=== PATIENT | male | born 1945 | race Caucasian/White ===

== ENCOUNTER 2021-12-24 16:51 | Outpatient (REF) | payer MEDICARE, BC, SELFPAY ==
[2021-12-24 19:14] LABS: Appearance Urine Slightly Cloudy (Clear); Bilirubin Urine Negative (Negative); Blood Urine 1+ (Negative); Color Urine Yellow (Yellow); Glucose Urine Negative (Negative); Ketones Urine Negative (Negative); Leukocyte Esterase Urine 3+ (Negative); Nitrite Urine Negative (Negative); Protein Urine Negative (Negative); Urobilinogen Urine 0.2 (0.2-1.0)
[2021-12-24 19:51] LABS: RBC Urine >100 (0-2); WBC Urine >100 (0-5)
== END 2021-12-24 16:52 | disposition home or self-care (01) ==
LOC: NPINS 16:51
PROVIDERS: PCP Nurse Practitioner Gerontology; Visit Provider Nurse Practitioner Gerontology
DX: R82.998 Other abnormal findings in urine (principal)
CPT/HCPCS: 81001; 87086

== ENCOUNTER 2022-10-07 07:43 | Outpatient (REF) | payer MEDICARE, BC, SELFPAY ==
[2022-10-07 08:27] LABS: Hemoglobin* 13.4 gm/dL (13.5-17.5); Mean Corpuscular HGB Conc 33 gm/dL (32-36); Mean Corpuscular Hemoglobin 31 pg (26-34); Mean Corpuscular Volume 95 fL (80-100); Platelet Count* 162 K/uL (140-440); Red Blood Count 4.33 m/uL (4.30-5.90); White Blood Count* 5.83 K/uL (4.50-11.00)
[2022-10-07 08:33] LABS: Slide Review Reflex No
[2022-10-07 08:35] LABS: Chloride* 111 mmol/L (96-114); Potassium* 3.7 mmol/L (3.6-5.1); Sodium* 146 mmol/L (135-149)
[2022-10-07 08:38] LABS: Creatinine* 1.6 mg/dL (0.5-1.5); Estimated Glomerular Filt Rate 44 ml/min
[2022-10-07 08:39] LABS: Blood Urea Nitrogen* 17 mg/dL (7-30); Calcium* 9.6 mg/dL (8.4-10.6); Carbon Dioxide* 28 mmol/L (20-32); Glucose* 109 mg/dL (60-115)
== END 2022-10-07 07:44 | disposition home or self-care (01) ==
LOC: NPINS 07:43
PROVIDERS: PCP Nurse Practitioner Gerontology; Visit Provider Family Medicine
DX: R53.83 Other fatigue (principal)
CPT/HCPCS: 80048; 85027

== ENCOUNTER 2023-02-11 17:44 | Inpatient (IN) | payer MEDICARE, BC, SELFPAY ==
[2023-02-11] VITALS (18 sets, daily range): BP systolic 116–123; BP diastolic 80–107; PULSE 79–95; RESP 14; TEMP 37.1–37.5; O2SAT 91–97; BMI 25.8
--- NOTE | 2023-02-11 17:50 | ED.FEVER ---
HPI - Fever General Time Seen by Provider: 18:03 Date Seen: 02/11/23 Chief Complaint: Altered Mental Status Stated Complaint: fever Time Seen by Provider: 02/11/23 17:50 Source: patient and RN notes reviewed Mode of arrival: ambulatory Limitations: no limitations History of Present Illness HPI Narrative: Patient is a 77-year-old male brought in by ambulance from [facility] with fever and altered mental status. Patient is in the memory care unit there, usually is ambulatory but was noted to not be walking today, had a fever. His has not seen him much recently as there has been a COVID outbreak over there. She states Thursday no but he tested positive. On Thursday she actually did see him, did note him to be coughing some. She relays that the last time he was hospitalized here, really had no symptoms but weakness but was found to have pneumonia on chest CT, chest x-ray did not show anything. She notes that his nutritional status in intake has been diminishing over the summer, thought to be due to his end-stage dementia. He is DNR DNI, she would want him treated if he had a UTI, would certainly consider antibiotics. Selective medical treatments are considered for him. Current medications are acetaminophen suppository p.r.n. artificial tears p.r.n. aspirin 81 mg daily, biscodyl suppository p.r.n., Desitin b.i.d., fluorouracil cream b.i.d., hyoscyamine p.r.n. p.r.n. lorazepam, MiraLax daily, oxycodone 5 mg q.2 hours p.r.n., prochlorperazine 10 mg p.r.n. propranolol 60 mg extended release q.a.m., senna p.r.n. at this time, do not know what his temperature was at [facility]. I initially talked to his , do not see any report in the outside paperwork. Will see if we can ascertain what his temperature was there. Have reviewed with his thoughts on labs. She certainly would be okay for us to do an in and out catheter to get a urinary specimen. She would also agree to some blood work. Did review things like a CBC can be beneficial in helping me figure out what type of infection there might be. We will also do the triple swab which includes COVID. Will have them do blood cultures. His problem list shows Alzheimer's dementia, dental caries, skin cancer, constipation, ASCVD with out angina, hypertension, hyperlipidemia, history of major depressive disorder, macular degeneration, amnesia, essential tremor. MD elicited complaint: fever Related Data Home Medications Medication Instructions Recorded Confirmed aspirin 81 mg tablet,delayed 81 mg PO QDAY 01/29/22 02/11/23 release propranolol 60 mg capsule,24 60 mg PO QDAY 01/29/22 02/11/23 hr,extended release sennosides 8.6 mg capsule (senna) 8.6 mg PO BID 01/29/22 02/11/23 Previous Rx's Medication Instructions Recorded fluorouracil 5 % topical cream 1 applic topical BID #40 grams 12/02/22 Allergies Allergy/AdvReac Type Severity Reaction Status Date / Time atorvastatin Allergy Unknown Verified 02/11/23 18:05 Review of Systems Status of ROS Reports: unobtainable due to mental status Narrative Patient does attempt to talk to me but is mumbling, cannot understand him. [facility] Medical History (Updated 02/11/23 @ 22:36 by Violeta Mckeon MD) Actinic keratoses ?L57.0 - Actinic keratosis (ICD-10) Social History Smoking Status: Never smoker How often do you have a drink containing alcohol: never How often do you have six or more drinks on one occasion: Never AUDIT-C Alcohol total score: 0 Non-prescribed substance use: denies use Exam Const Vital Signs, click to edit/add: Vital Signs - 24 hr 02/11/23 17:57 02/11/23 18:01 02/11/23 19:44 Temperature 98.8 F Pulse Rate 90 Pulse Rate [Pulse Oximeter] 95 Respiratory Rate 14 Blood Pressure Blood Pressure [Right Upper Arm] 123/107 H Pulse Oximetry 96 92 95 Oxygen Delivery Method Room Air 02/11/23 19:45 02/11/23 20:00 02/11/23 20:02 Temperature Pulse Rate 89 90 91 Pulse Rate [Pulse Oximeter] Respiratory Rate Blood Pressure 117/80 Blood Pressure [Right Upper Arm] Pulse Oximetry 94 95 94 Oxygen Delivery Method 02/11/23 20:15 02/11/23 20:30 Temperature Pulse Rate 91 90 Pulse Rate [Pulse Oximeter] Respiratory Rate Blood Pressure Blood Pressure [Right Upper Arm] Pulse Oximetry 94 94 Oxygen Delivery Method Patient is a 77-year-old male lying in bed. He was sleeping initially, did stimulate with sternal rub but after that was attempting to try to talk to me. He palpates warmer than what the temperature red, will have nursing staff see if we can do an alternate temperature source. Will not open his eyes but when I force is upper eyelids open, sclera clear, seems to have a conjugate gaze. Breathing with his mouth open, oropharynx looks dry but no exudates. Neck is slender no masses. He fights having us attempt to roll him so I can listen to his back, the best that I can do listening to his lungs, do not hear any wheezing or crackles, this is a poor exam due to lack of patient effort right now. CV regular rate and rhythm, no murmur, normal S1-S2. Abdomen seems to be soft, no masses, does not seem to be tender. Did have him move his upper extremities and localized pain as a did a mild sternal rub. He later did move his legs up and bring them up into a flexed position at the knees. He has no lower extremity edema, see no skin rash or any open wounds on visualized areas. Documenting provider has reviewed patient's vital signs: yes Course Course ED Course: Patient very obviously likely has an infectious source as the causes of his change in status. Will start with a portable chest x-ray, some basic labs the triple viral swab. Will be doing an in and out catheterization to obtain urine specimen. Will discuss options and treatments with his as we go. Unfortunately, do not feel that he is going to be a candidate to go back to his memory care unit given his current status. He technically is a hospice patient from what I understand may need to discuss this further and confirmed that with his , this was brought to my attention after I talked to her. Reevaluation(s) Time of Reevaluation #1: 21:03 Reevaluation #1: Went to talk to patient's , I did learn from nursing staff that the hospice team had sent in a prescription for cefdinir, was to be started tomorrow for probable UTI. He is definitely hospice. We discussed hospice and what hospice technically means. She states the hospice nurse told her he could come to the ER. We discussed that admission to the hospital is not part of the hospice program, if this is what she is desiring then his hospice status would need to be revoked. She was hoping for him to get IV fluids and IV antibiotics. She did not relate this information to me when we were talking. He will get some IV fluid now, will initiate IV Rocephin, she needs to consider what she wants done. She states he probably would be able to take an oral pill right now, did review with her that I agreed but he may not be able to take them tomorrow either. Time will tell. She has some decisions to consider and we will give her some time to think about these things. Time of Reevaluation #2: 22:27 Reevaluation #2: He has received the IV fluids, the IV Rocephin. He is not really communicative with me still at this point. His recollects that when he could speak for himself, he did want to be treated for infections that could be reversible. This is with the understanding that he is currently in hospice. She understands that will be revoked but he can go back in the hospice at some point. We will honor her wishes, put him in the hospital observation. I will initiate some maintenance IV fluid. He is still DNR DNI. Consultations Consultation #1: Have reviewed with Dr. Ruby, he accepts this patient. Time: 22:35 Vital Signs Vital signs: Initial Vital Signs Temperature 98.8 F 02/11/23 17:57 Temperature Source Temporal Artery Scan 02/11/23 17:57 Pulse Rate 95 02/11/23 17:57 Respiratory Rate 14 02/11/23 17:57 Blood Pressure 123/107 H 02/11/23 17:57 Blood Pressure Mean 112 H 02/11/23 17:57 Blood Pressure Position Sitting 02/11/23 17:57 Pulse Oximetry 96 02/11/23 17:57 Oxygen Delivery Method Room Air 02/11/23 17:57 Vital Signs Temperature 98.8 F 02/11/23 17:57 Pulse Rate 95 02/11/23 17:57 Respiratory Rate 14 02/11/23 17:57 Blood Pressure 123/107 H 02/11/23 17:57 Pulse Oximetry 96 02/11/23 17:57 Oxygen Delivery Method Room Air 02/11/23 17:57 Temperature 98.8 F 02/11/23 17:57 Pulse Rate 90 02/11/23 20:30 Respiratory Rate 14 02/11/23 17:57 Blood Pressure 117/80 02/11/23 20:02 Pulse Oximetry 94 02/11/23 20:30 Oxygen Delivery Method Room Air 02/11/23 17:57 MDM - Fever Lab Data Attestation: I reviewed the patient's lab results. Labs: Lab Results 02/11/23 02/11/23 02/11/23 Range/Units 18:10 18:13 18:45 WBC 21.84 H (4.50-11.00) K/uL RBC 4.44 (4.30-5.90) m/uL Hgb 14.0 (13.5-17.5) gm/dL Hct 42.5 (37.0-53.0) % MCV 96 (80-100) fL MCH 32 (26-34) pg MCHC 33 (32-36) gm/dL RDW Coeff of Dionisio 13.2 (11.5-15.5) % Plt Count 187 (140-440) K/uL Neut % (Auto) 71.8 (42.0-72.0) % Lymph % (Auto) 7.2 L (20-44) % Tyrrell % (Auto) 20.4 H (0.0-11.0) % Eos % (Auto) 0.0 (0.0-7.0) % Baso % (Auto) 0.2 (0.0-3.0) % Neut # (Auto) 15.70 H (1.7-7.0) K/uL Lymph # (Auto) 1.60 (0.90-2.90) K/uL Tyrrell # (Auto) 4.50 H (0.00-0.90) K/UL Eos # (Auto) 0.00 (0.00-0.50) K/uL Baso # (Auto) 0.00 (0.00-0.30) K/uL Abs Immat Gran (auto) 0.10 (0.00-0.30) K/uL Imm/Tot Granulo (auto) 0.4 % Diff Slide Review Acceptable Review (Acceptable) Sodium 145 (135-149) mmol/L Potassium 4.0 (3.6-5.1) mmol/L Chloride 112 (96-114) mmol/L Carbon Dioxide 20 (20-32) mmol/L Anion Gap 13 (7-15) mEq/L BUN 29 (7-30) mg/dL Creatinine 2.5 H (0.5-1.5) mg/dL Estimated Creat Clear 22.40 Estimated GFR 26 ml/min Glucose 162 H (60-115) mg/dL Lactate 1.6 (0.5-1.9) mmol/L Calcium 9.6 (8.4-10.6) mg/dL Total Bilirubin 1.2 (0.1-1.5) mg/dL AST 29 (12-35) U/L ALT 21 (4-50) U/L Alkaline Phosphatase 115 (40-150) U/L C-Reactive Protein > 9.0 H (0.5-1.0) mg/dL Total Protein 9.3 H (6.0-8.3) g/dL Albumin 4.3 (3.3-5.0) g/dL Urine Color (Yellow) Urine Appearance (Clear) Urine pH (5.0-8.5) Ur Specific [place] (1.000-1.030) Urine Protein (Negative) Urine Glucose (UA) (Negative) Urine Ketones (Negative) Urine Blood (Negative) Urine Nitrite (Negative) Urine Bilirubin (Negative) Urine Urobilinogen (0.2-1.0) Ur Leukocyte Esterase (Negative) Urine RBC (0-2) Urine WBC (0-5) Urine WBC Clumps (None) Ur Squamous Epith Cells (None-Few) Urine Bacteria (None) SARS-CoV-2 (PCR) Negative SARS-CoV-2 (Negative) Influenza Type A (PCR) Negative PCR FLU A (Negative) Influenza Type B (PCR) Negative PCR FLU B (Negative) RSV (PCR) Negative PCR RSV (Negative) Lab Acknowledgement Test Added 02/11/23 Range/Units 19:33 WBC (4.50-11.00) K/uL RBC (4.30-5.90) m/uL Hgb (13.5-17.5) gm/dL Hct (37.0-53.0) % MCV (80-100) fL MCH (26-34) pg MCHC (32-36) gm/dL RDW Coeff of Dionisio (11.5-15.5) % Plt Count (140-440) K/uL Neut % (Auto) (42.0-72.0) % Lymph % (Auto) (20-44) % Tyrrell % (Auto) (0.0-11.0) % Eos % (Auto) (0.0-7.0) % Baso % (Auto) (0.0-3.0) % Neut # (Auto) (1.7-7.0) K/uL Lymph # (Auto) (0.90-2.90) K/uL [place] # (Auto) (0.00-0.90) K/UL Eos # (Auto) (0.00-0.50) K/uL Baso # (Auto) (0.00-0.30) K/uL Abs Immat Gran (auto) (0.00-0.30) K/uL Imm/Tot Granulo (auto) % Diff Slide Review (Acceptable) Sodium (135-149) mmol/L Potassium (3.6-5.1) mmol/L Chloride (96-114) mmol/L Carbon Dioxide (20-32) mmol/L Anion Gap (7-15) mEq/L BUN (7-30) mg/dL Creatinine (0.5-1.5) mg/dL Estimated Creat Clear Estimated GFR ml/min Glucose (60-115) mg/dL Lactate (0.5-1.9) mmol/L Calcium (8.4-10.6) mg/dL Total Bilirubin (0.1-1.5) mg/dL AST (12-35) U/L ALT (4-50) U/L Alkaline Phosphatase (40-150) U/L C-Reactive Protein (0.5-1.0) mg/dL Total Protein (6.0-8.3) g/dL Albumin (3.3-5.0) g/dL Urine Color Yellow (Yellow) Urine Appearance Slightly Cloudy A (Clear) Urine pH 8.0 (5.0-8.5) Ur Specific [place] 1.015 (1.000-1.030) Urine Protein 2+ A (Negative) Urine Glucose (UA) Negative (Negative) Urine Ketones Negative (Negative) Urine Blood 2+ A (Negative) Urine Nitrite Negative (Negative) Urine Bilirubin Negative (Negative) Urine Urobilinogen 0.2 (0.2-1.0) Ur Leukocyte Esterase 3+ A (Negative) Urine RBC 5-10 A (0-2) Urine WBC >100 A (0-5) Urine WBC Clumps Few A (None) Ur Squamous Epith Cells None (None-Few) Urine Bacteria Moderate A (None) SARS-CoV-2 (PCR) (Negative) Influenza Type A (PCR) (Negative) Influenza Type B (PCR) (Negative) RSV (PCR) (Negative) Lab Acknowledgement Imaging Data Chest x-ray: Attestation: I have reviewed the pertinent imaging results. My impression: I see no acute pathology my preliminary review of this portable chest x-ray. Radiologist's impression: Patient: [facility] Facility:?[facility] Patient ID:?[id number] Site Patient ID:?[id number]. Site :?[id number] Study:?XRay Chest PORTABLE-02/11/2023 6:23:15 PM Ordering Physician:Heydi Mcdaniel Final Report: INDICATION: Cough and fever. COMPARISON: Two-view chest December 08, 2020. TECHNIQUE: Single portable AP chest. FINDINGS: Normal size cardiac silhouette. Clear lung alfaro. No acute pneumonic infiltrates or CHF. IMPRESSION: Negative portable AP chest. Dictated by Per Moe MD @ 02/11/2023 6:44:47 PM (Electronic Signature) Discharge Plan Discharge Clinical Impression: Altered mental status, Dementia, Urinary tract infection Patient Disposition: Admitted As Observation Prescriptions: No Action senna 8.6 mg capsule 8.6 mg PO BID aspirin 81 mg tablet,delayed release (DR/EC) 81 mg PO QDAY propranolol 60 mg capsule,extended release 24 hr 60 mg PO QDAY fluorouracil 5 % cream 1 applic topical BID Qty: 40 0RF Follow Up/Referrals: Daria Dia DNP, RN [Primary Care Provider] -
--- NOTE | 2023-02-11 18:01 | CRLHL7_ITS ---
For Patients: As a result of the Century Cures Act, medical imaging exams and procedure reports are released immediately into your electronic medical record. You may view this report before your referring provider. If you have questions, please contact your health care provider. INDICATION: Cough and fever. COMPARISON: Two-view chest December 08, 2020. TECHNIQUE: Single portable AP chest. FINDINGS: Normal size cardiac silhouette. Clear lung alfaro. No acute pneumonic infiltrates or CHF. IMPRESSION: Negative portable AP chest. Dictated by Per Moe MD @ 02/11/2023 6:44:47 PM (Electronically Signed)
[2023-02-11 18:50] LABS: PCR FLU A Negative PCR FLU A (Negative); PCR FLU B Negative PCR FLU B (Negative); PCR RSV Negative PCR RSV (Negative); SARS PCR* Negative SARS-CoV-2 (Negative)
[2023-02-11 18:54] LABS: Lactate* 1.6 mmol/L (0.5-1.9)
[2023-02-11 19:08] LABS: Albumin* 4.3 g/dL (3.3-5.0); Chloride* 112 mmol/L (96-114)
[2023-02-11 19:09] LABS: Sodium* 145 mmol/L (135-149)
[2023-02-11 19:11] LABS: Bilirubin Total* 1.2 mg/dL (0.1-1.5); Creatinine* 2.5 mg/dL (0.5-1.5); Estimated Glomerular Filt Rate 26 ml/min
[2023-02-11 19:12] LABS: Alanine Aminotransferase* 21 U/L (4-50); Alkaline Phosphatase* 115 U/L (40-150); Anion Gap 13 mEq/L (7-15); Aspartate Amino Transferase* 29 U/L (12-35); Blood Urea Nitrogen* 29 mg/dL (7-30); Calcium* 9.6 mg/dL (8.4-10.6); Carbon Dioxide* 20 mmol/L (20-32); Glucose* 162 mg/dL (60-115); Total Protein* 9.3 g/dL (6.0-8.3)
[2023-02-11 19:24] LABS: C Reactive Protein* > 9.0 mg/dL (0.5-1.0)
--- NOTE | 2023-02-11 19:40 | ED.NURSE ---
Straight cath done, pt did not tolerate procedure well. 3 staff members required to assist in keeping pt still to complete procedure. UA collected and sent to lab. Approx 200 mLs of cloudy yellow urine drained from cath. Pt cleaned with landry wipes and clean brief applied after cath.
[2023-02-11 19:49] LABS: Basophils Percent Auto 0.2 % (0.0-3.0); Hematocrit 42.5 % (37.0-53.0); Immature Granulocytes Pct Auto 0.4 %; Lymphocytes Percent Auto 7.2 % (20-44); Mean Corpuscular HGB Conc 33 gm/dL (32-36); Mean Corpuscular Hemoglobin 32 pg (26-34); Mean Corpuscular Volume 96 fL (80-100); Monocytes Percent Auto 20.4 % (0.0-11.0); Neutrophils Percent Auto 71.8 % (42.0-72.0); Platelet Count* 187 K/uL (140-440); RDW Coefficient of Variation % 13.2 % (11.5-15.5); Red Blood Count 4.44 m/uL (4.30-5.90); White Blood Count* 21.84 K/uL (4.50-11.00)
[2023-02-11 19:52] LABS: Slide Review Reflex Yes
[2023-02-11 20:01] LABS: Appearance Urine Slightly Cloudy (Clear); Bilirubin Urine Negative (Negative); Blood Urine 2+ (Negative); Color Urine Yellow (Yellow); Glucose Urine Negative (Negative); Ketones Urine Negative (Negative); Specific Gravity Urine 1.015 (1.000-1.030)
[2023-02-11 20:02] LABS: Bacteria Urine Moderate; Leukocyte Esterase Urine 3+ (Negative); Nitrite Urine Negative (Negative); Protein Urine 2+ (Negative); Urobilinogen Urine 0.2 (0.2-1.0); WBC Clumps Urine Few; WBC Urine >100 (0-5)
[2023-02-11 20:43] LABS: Slide Review Acceptable Review (Acceptable)
[2023-02-11] MEDS: 0.9 % SODIUM CHLORIDE 500 ML 500 ML IV (21:06)
[2023-02-11] MEDS: cefTRIAXone 1 GM in 0.9 % SODIUM CHLORIDE Mini-bag 100 ML IVPB (21:15)
[2023-02-11] MEDS: LACTATED RINGERS 1000 ML 1,000 ML IV (22:45)
--- NOTE | 2023-02-11 23:02 | ED.NURSE ---
Report called to M/S RN.
--- NOTE | 2023-02-11 23:38 | P.IMHP_ITS ---
Hospitalist- H&P: HPI History of Present Illness Date Seen: 02/11/23 Chief complaint: fever Narrative: Juan Mendoza is a 77 year old male with severe dementia in hospice care and history of coronary disease who has had decline in mental status, functional status in the last few days. Today he developed fever. He lives at [facility] at [facility]. He is enrolled in hospice for dementia. Dementia was diagnosed 11 years ago. When he became ill the hospice staff ordered an oral antibiotic. With his declining mental status it was clear that he was not going to be able to swallow any pills or taken any food or fluid. He is brought to the emergency room for evaluation. I spoke with his and his sister about his goals of care. indicates that she does not want him to suffer and that she is also not wanting to let go of him. She is concerned that the staff at [facility] and the hospice staff are not going to be able to provide comfort care. She also wants him to get antibiotics because 8 years ago he indicated he would want infections treated on his advanced directives. She thinks his quality of life is poor and does not think that he would want his life to be prolonged for more months. Review of Systems Narrative: With his dementia he is nonverbal except for occasional nonsensical utterances. He does ambulate. He has frequent falls. If his or staff put a walker in front of him he will use it but otherwise does not always remember to use a walker. His appetite and nutrition is variable. Some days she does not eat much but usually will drink something. In the last couple days he has apparently not been eating or drinking. He sometimes does not cooperate with cares. His was concerned that staff could not give him a Tylenol suppository because he would resist them. Family history is notable for his having 14 siblings who are mostly still alive and in fairly good health. Couple sisters had breast cancer in a brother had complications of diabetes [facility] Medical History Hypertension ?I10 - Essential (primary) hypertension (ICD-10) Essential tremor ?G25.0 - Essential tremor (ICD-10) Coronary artery disease ?I25.10 - Atherosclerotic heart disease of zuni coronary artery without angina pectoris (ICD-10) Palliative care encounter ?Z51.5 - Encounter for palliative care (ICD-10) Heshn-nr-qkmtpxh kidney injury ?N17.9 - Acute kidney failure, unspecified (ICD-10) ?N18.9 - Chronic kidney disease, unspecified (ICD-10) Hyperproteinemia ?E88.09 - Other disorders of plasma-protein metabolism, not elsewhere classified (ICD-10) Dementia ?F03.90 - Unspecified dementia, unspecified severity, without behavioral disturbance, psychotic disturbance, mood disturbance, and anxiety (ICD-10) Squamous cell carcinoma in situ (SCCIS) ?D09.9 - Carcinoma in situ, unspecified (ICD-10) Skin lesion of left arm ?L98.9 - Disorder of the skin and subcutaneous tissue, unspecified (ICD-10) Actinic keratoses ?L57.0 - Actinic keratosis (ICD-10) Surgical History History of coronary artery stent placement ?Z95.5 - Presence of coronary angioplasty implant and graft (ICD-10) H/O hernia repair ?Z98.890 - Other specified postprocedural states (ICD-10) ?Z87.19 - Personal history of other diseases of the digestive system (ICD-10) Family History (Updated 02/11/23 @ 23:53 by Denilson Ruby MD) Sister Breast cancer Other Diabetes Social History (Updated 02/11/23 @ 23:55 by Denilson Ruby MD) Narrative: He lives at [facility]. His is closely involved in his care and visits regularly. She has been visiting lasts in the last couple weeks as they have had an outbreak of COVID at [facility]. She is healthcare power of proof plate maker. Smoking Status: Never smoker How often do you have a drink containing alcohol: never How often do you have six or more drinks on one occasion: Never AUDIT-C Alcohol total score: 0 Non-prescribed substance use: denies use Meds Home Medications and Allergies Home Medications Medication Instructions Recorded Confirmed Type aspirin 81 mg tablet,delayed 81 mg PO QDAY 01/29/22 02/11/23 History release propranolol 60 mg capsule,24 60 mg PO QDAY 01/29/22 02/11/23 History hr,extended release sennosides 8.6 mg capsule (senna) 8.6 mg PO BID 01/29/22 02/11/23 History Allergies Allergy/AdvReac Type Severity Reaction Status Date / Time atorvastatin Allergy Unknown Verified 02/11/23 18:05 Exam Narrative: Exam Narrative: He is sleeping soundly. Does not arouse to voice or touch. He does have some spontaneous nonpurposeful movements in his sleep. He does respond to to my touching his hand by squeezing my hand with both hands. He resists eye opening but eyes grossly appear normal without scleral icterus. No obvious facial asymmetry. Dry mucous membranes. Neck is without mass or adenopathy. Respirations are clear to auscultation. Breathing is unlabored. Cardiovascular: S1, S2, distant heart sounds. Abdomen is soft with mild right- sided tenderness. Bowel sounds are present. I do not palpate a mass. External genitalia normal. Extremities without edema. Intact peripheral pulses. He moves all 4 extremities non purposefully but with approximately equal strength Const: Vital Signs, click to edit/add: Vital Signs - 24 hr 02/11/23 17:57 02/11/23 18:01 02/11/23 19:44 Temperature 98.8 F Pulse Rate 90 Pulse Rate [Pulse Oximeter] 95 Respiratory Rate 14 Blood Pressure Blood Pressure [Ri ght Upper Arm] 123/107 H Pulse Oximetry 96 92 95 Oxygen Delivery Me thod Room Air 02/11/23 19:45 02/11/23 20:00 02/11/23 20:02 Temperature Pulse Rate 89 90 91 Pulse Rate [Pulse Oximeter] Respiratory Rate Blood Pressure 117/80 Blood Pressure [Ri ght Upper Arm] Pulse Oximetry 94 95 94 Oxygen Delivery Me thod 02/11/23 20:15 02/11/23 20:30 02/11/23 20:45 Temperature Pulse Rate 91 90 91 Pulse Rate [Pulse Oximeter] Respiratory Rate Blood Pressure Blood Pressure [Ri ght Upper Arm] Pulse Oximetry 94 94 92 Oxygen Delivery Me thod 02/11/23 21:00 02/11/23 21:15 02/11/23 21:30 Temperature Pulse Rate 93 89 85 Pulse Rate [Pulse Oximeter] Respiratory Rate Blood Pressure Blood Pressure [Ri ght Upper Arm] Pulse Oximetry 93 94 91 Oxygen Delivery Me thod 02/11/23 21:45 02/11/23 22:00 02/11/23 22:02 Temperature Pulse Rate 81 81 80 Pulse Rate [Pulse Oximeter] Respiratory Rate Blood Pressure 116/94 H Blood Pressure [Ri ght Upper Arm] Pulse Oximetry 95 93 97 Oxygen Delivery Me thod 02/11/23 22:15 02/11/23 22:30 02/11/23 22:45 Temperature 99.5 F Pulse Rate 84 82 Pulse Rate [Pulse Oximeter] Respiratory Rate Blood Pressure Blood Pressure [Ri ght Upper Arm] Pulse Oximetry 93 96 Oxygen Delivery Me thod 02/11/23 22:45 Temperature Pulse Rate 79 Pulse Rate [Pulse Oximeter] Respiratory Rate Blood Pressure Blood Pressure [Ri ght Upper Arm] Pulse Oximetry 95 Oxygen Delivery Me thod Documenting provider has reviewed patient's vital signs: yes Hospitalist - H&P: Result Labs Labs: Short CBC 02/11/23 Range/Units 18:45 WBC 21.84 H (4.50-11.00) K/uL Hgb 14.0 (13.5-17.5) gm/dL Hct 42.5 (37.0-53.0) % Plt Count 187 (140-440) K/uL BMP 02/11/23 18:45 Sodium 145 Potassium 4.0 Chloride 112 Carbon Dioxide 20 BUN 29 Creatinine 2.5 H Glucose 162 H Calcium 9.6 Liver Function 02/11/23 Range/Units 18:45 Total Bilirubin 1.2 (0.1-1.5) mg/dL AST 29 (12-35) U/L ALT 21 (4-50) U/L Alkaline Phosphatase 115 (40-150) U/L Albumin 4.3 (3.3-5.0) g/dL Urine 02/11/23 Range/Units 19:33 Urine Color Yellow (Yellow) Urine Appearance Slightly Cloudy A (Clear) Urine pH 8.0 (5.0-8.5) Ur Specific [place] 1.015 (1.000-1.030) Urine Protein 2+ A (Negative) Urine Glucose (UA) Negative (Negative) Assessment and Plan Assessment and plan (1) Sepsis: Problem comment: Fever, leukocytosis, acute kidney injury, altered mental status likely due to urinary infection. Other abdominal problems also possible. Currently will not further investigate as does not think surgical intervention is warranted and uncertain about goals of care. Status: Acute (2) Urinary tract infection: Status: Acute (3) Qxzso-zb-wyinvdx kidney injury: Status: Acute (4) Abdominal tenderness: Problem comment: Patient had tenderness with palpation over the right side of his abdomen. Due to altered mental status the significance of this was difficult to assess. His decided that he was not a candidate for surgical intervention. For now will forego further testing pending his clinical course and further discussions with about goals of care Status: Acute (5) Palliative care encounter: Problem comment: Patient has been in hospice with a diagnosis of dementia since November 2022. She verbalized concerns tonight about her fears that he was suffering and also that he was dying. She was fearful that the staff at assisted living and in hospice could not relieve his suffering. She feels his quality of life is poor and he does not want life-prolonging treatment but she does not want to let go. Status: Acute (6) Dementia: Problem comment: Severe. Hospice diagnosis. Status: Acute (7) Altered mental status: Problem comment: Acute worsening of his mental status in the last few days. Previously walking independently and feeding himself. Recently not eating and not walking and less responsive overall. Likely due to infection and sepsis Status: Acute (8) Hyperproteinemia: Problem comment: Unknown cause. Uncertain whether investigation would benefit the patient Status: Acute (9) Coronary artery disease: Status: Acute (10) Hypertension: Status: Acute Plan After long discussion with patient's about his condition and goals of care decisions made that he will be hospitalized, treated with IV antibiotics and IV fluids. Ongoing discussion about goals of care and end of life care. needs more confidence that staff providing care going to be able to keep him comfortable. She is also clearly emotionally torn about the possibility of him dying yet recognizes that he would probably not want life-prolonging treatment. Total time spent today is 80 minutes, 50 minutes in coordination of care discussing with ongoing evaluation management of end of life care and urinary tract infection with sepsis
[2023-02-12] VITALS: BP 114/71; PULSE 75; RESP 20; TEMP 37.1; O2SAT 98
[2023-02-12] MEDS: LACTATED RINGERS 1000 ML 1,000 ML 125 ML IV ×2 (01:28→08:50)
[2023-02-12 03:50] VITALS: BP 115/62; PULSE 76; RESP 18; TEMP 37.5; O2SAT 95
[2023-02-12 06:30] LABS: Lactate* 1.2 mmol/L (0.5-1.9)
[2023-02-12 06:40] LABS: Basophils Percent Auto 0.1 % (0.0-3.0); Hematocrit 36.8 % (37.0-53.0); Hemoglobin* 11.9 gm/dL (13.5-17.5); Immature Granulocytes Pct Auto 0.4 %; Lymphocytes Percent Auto 6.7 % (20-44); Mean Corpuscular HGB Conc 32 gm/dL (32-36); Mean Corpuscular Hemoglobin 31 pg (26-34); Mean Corpuscular Volume 96 fL (80-100); Neutrophils Percent Auto 72.8 % (42.0-72.0); Platelet Count* 165 K/uL (140-440); RDW Coefficient of Variation % 13.2 % (11.5-15.5); Red Blood Count 3.82 m/uL (4.30-5.90); White Blood Count* 18.81 K/uL (4.50-11.00)
[2023-02-12 06:41] LABS: Slide Review Reflex Yes
[2023-02-12 06:59] LABS: Albumin* 3.5 g/dL (3.3-5.0); Chloride* 117 mmol/L (96-114)
[2023-02-12 07:00] LABS: Sodium* 148 mmol/L (135-149)
[2023-02-12 07:02] LABS: Creatinine* 2.1 mg/dL (0.5-1.5); Est. Creatinine Clearance* 26.67; Estimated Glomerular Filt Rate 31 ml/min
[2023-02-12 07:03] LABS: Alanine Aminotransferase* 16 U/L (4-50); Alkaline Phosphatase* 84 U/L (40-150); Anion Gap 10 mEq/L (7-15); Aspartate Amino Transferase* 28 U/L (12-35); Bilirubin Direct* 0.2 mg/dL (0.0-0.5); Bilirubin Total* 0.9 mg/dL (0.1-1.5); Blood Urea Nitrogen* 29 mg/dL (7-30); Carbon Dioxide* 21 mmol/L (20-32); Glucose* 143 mg/dL (60-115); Total Protein* 7.9 g/dL (6.0-8.3)
[2023-02-12 07:04] LABS: Calcium* 8.8 mg/dL (8.4-10.6)
--- NOTE | 2023-02-12 07:17 | PC.NURSE ---
END OF SHIFT NOTE: PT WITH ADVANCED DEMENTIA. PT SPEECH IS GARBLED, UNABLE TO UNDERSTAND. INCONTINENT OF URINE X2. SWABBED MOUTH WITH ORAL SPONGES. LR @125ML/HR. SLEPT WELL. UNABLE TO USE CALL LIGHT AND VOICE NEEDS. T&R DURING HS.
[2023-02-12 07:22] LABS: C Reactive Protein* 22.3 mg/dL (0.5-1.0)
[2023-02-12 07:44] LABS: Slide Review Acceptable Review (Acceptable)
[2023-02-12 07:49] VITALS: BP 118/98; PULSE 75; RESP 16; TEMP 36.9; O2SAT 96
[2023-02-12] MEDS: ASPIRIN 81 MG TABLET EC PO (08:48)
[2023-02-12] MEDS: SENNOSIDES 1 TAB TABLET 8.6 TAB PO (08:50)
--- NOTE | 2023-02-12 09:45 | REH.PT ---
Attempted to see patient this morning for assessment of mobility. Pt able to be awakened briefly with sternal rub, then returns to eyes shut. Pt's and sister present, very concerned about patient and whether or not he will awaken, or if this is, 'the beginning of the end.' If patient opens eyes, can consider ceiling lift to recliner with nsg staff later today. reports that 4 days ago prior to fever, pt was up amb Ind or with sba of 1 with 2ww in memory care at [facility]. In conversation with Dr. Ruby, he would like to wait and hear from soc. service as to whether pt can be taken care of at [facility] with comfort cares if he is placed on hospice again. Will recheck with and nsg staff tomorrow as to whether patient should be seen by PT for assessment.
[2023-02-12] MEDS: fentaNYL 12 mcg/hr PATCH 1 PATCH TRANSDERMA (11:44)
--- NOTE | 2023-02-12 11:44 | REH.OT ---
Orders for OT eval and treat received. Per PT and nsg, pt difficult to be awakened with intermittent alertness this AM. Not appropriate to see at this time, will recheck tomorrow.
--- NOTE | 2023-02-12 12:56 | PC.SOCIAL ---
Addendum entered by Shilpa Villar LCSW 02/12/23 15:25: , Dori updated on plan to discharge tomorrow 02/13 with non emergency ambulance at 11:00am. Charge nurse and hospitalist updated. Social work to follow up as needed. Addendum entered by Shilpa Villar LCSW 02/12/23 14:26: Spoke with Guerline from [facility]. They are willing to accept patient back tomorrow around 11:00am. Social work to follow up as needed. Original Note: Discharge Planning: Met in patient's room with , Dori and patient's sister, Daria. Discussed patient and families journey with hospice.Spouse, Dori was very tearful as she talked about her husbands terminal diagnosis, agitation, and choices to be made. Dori stated that Juan had filled out an advanced directive eight years ago stating that he would want antibiotics and she felt that she was honoring his wishes by bringing him into the hospital, even though he was on hospice. Hospitalist, Dr. Ruby entered the room and explained the choices that Dori could make for her . After consideration Dori decided to make her as comfortable as possible with medications, so that he no longer felt agitated. Support given as family comes to terms decisions and with prognosis. Patient will stay one more day at the hospital. Spouse is hopeful that patient can return to [facility] with hospice services. Call to Guerline at [facility] [phone]. Awaiting call back. Social work to follow up as needed.
--- NOTE | 2023-02-12 13:14 | NUTR.NU ---
RDN with nursing consult for weight loss, eating poorly, and needing a nutrition supplement. Patient comes from memory care at [facility] with hospice. Plan is to possibly discharge back on hospice per IDT meeting. RDN met with patient's and sister. Patient was receiving and drinking Boost and Ensure at [facility]. Patient's declined any nutrition supplements or nutrition interventions at this time. Patient is reported to not be awake enough to eat at this time per patient's . Nutrition assessment not appropriate at this time. Recommend nutrition per patient's goals of care. RDN will check back at a later date.
--- NOTE | 2023-02-12 14:45 | P.IMPN_ITS ---
Progress Note: A&P Assessment and plan (1) Palliative care encounter: Problem details: Patient has been in hospice with a diagnosis of dementia since November 2022. She verbalized concerns tonight about her fears that he was suffering and also that he was dying. She was fearful that the staff at assisted living and in hospice could not relieve his suffering. She feels his quality of life is poor and he does not want life-prolonging treatment but she does not want to let go. On 1st day of admission repeat discussion regarding end of life cares, goals of care, prognosis has led to conclude that she would like comfort cares only and no life prolonging treatment. Will initiate fentanyl patch and discontinue life prolonging interventions. Anticipate discharge back to [facility] for hospice. Very poor prognosis Status: Acute (2) Sepsis: Problem details: Fever, leukocytosis, acute kidney injury, altered mental status likely due to urinary infection. Goals of care no longer include treatment of sepsis Status: Acute (3) Ahbqo-ib-mouoggq kidney injury: Status: Acute (4) Dementia: Problem details: Severe. Hospice diagnosis. Terminally ill Status: Acute (5) Hyperproteinemia: Problem details: Unknown cause. Uncertain whether investigation would benefit the patient Status: Acute (6) Urinary tract infection: Problem details: Goals of care no longer include treatment of UTI Status: Acute (7) Coronary artery disease: Status: Acute (8) Hypertension: Status: Acute (9) Abdominal tenderness: Problem details: Patient had tenderness with palpation over the right side of his abdomen. Due to altered mental status the significance of this was difficult to assess. His decided that he was not a candidate for surgical intervention. For now will forego further testing pending his clinical course and further discussions with about goals of care Status: Acute Plan Continue in hospital for evaluation management of comfort cares. I reassured the that we will do ongoing monitoring to make sure patient remains comfortable and we have a good plan to manage end of life symptoms prior to discharge Time Spent With Patient Total time spent: Total time spent today is 50 minutes, 40 minutes in coordination of care discussing with , sister, psychiatric social worker, nurses ongoing evaluation management of end of life care Subjective Date Seen: 02/12/23 Interval history: Juan Mendoza is a 77 year old male with severe dementia in hospice care and history of coronary disease who has had decline in mental status, functional status in the last few days. 02/11/2023 he developed fever. He lives at [facility] at [facility]. He is enrolled in hospice for dementia. Dementia was diagnosed 11 years ago. When he became ill the hospice staff ordered an oral antibiotic. With his declining mental status it was clear that he was not going to be able to swallow any pills or taken any food or fluid. He is brought to the emergency room for evaluation. I spoke with his and his sister about his goals of care. indicates that she does not want him to suffer and that she is also not wanting to let go of him. She is concerned that the staff at [facility] and the hospice staff are not going to be able to provide comfort care. She also wants him to get antibiotics because 8 years ago he indicated he would want infections treated on his advanced directives. She thinks his quality of life is poor and does not think that he would want his life to be prolonged for more months. Overnight he remained relatively unresponsive. He would minimally responds to touch and voice. He exhibits some nonpurposeful movements of his arms and legs. He is receiving IV fluids and IV antibiotics I spoke again with his and sister about plan of care. We discussed his current health status, recent quality of life, goals of care as interpreted by his , harms and benefits of palliative care/hospice and harms and benefits of life prolonging care with IV fluids and IV antibiotics. After this discussion his elects to make him comfort cares only and discontinue IV fluids and IV antibiotics. She wants assurance is that he will be comfortable and based on his recent history I believe a Duragesic patch will be most effective at helping his symptoms in the context of someone who has been episodically quite agitated. She is in agreement with this plan. The patch will be started today and the results of this will become apparent tomorrow. Anticipate possible discharge back to [facility] at [facility] tomorrow for hospice care. Exam Narrative: Exam Narrative: He is sleeping soundly. Does not open his eyes to voice or touch. He does make some vocalizations which are not interpretable. He does have some non purposeful movements of his arms and legs. Respirations are clear to auscultation. Cardiovascular: S1, S2, regular rate and rhythm. Abdomen: Bowel sounds active. Abdomen is soft without tenderness or mass. Compared to yesterday there is less impression of a tenderness on the right side than there was yesterday. Extremities without edema. Const: Vital Signs, click to edit/add: Vital Signs - 24 hr 02/11/23 17:57 02/11/23 18:01 02/11/23 19:44 Temperature 98.8 F Pulse Rate 90 Pulse Rate [Pulse Oximeter] 95 Respiratory Rate 14 Blood Pressure Blood Pressure [Le ft Arm] Blood Pressure [Ri ght Upper Arm] 123/107 H Pulse Oximetry 96 92 95 Oxygen Delivery Me thod Room Air 02/11/23 19:45 02/11/23 20:00 02/11/23 20:02 Temperature Pulse Rate 89 90 91 Pulse Rate [Pulse Oximeter] Respiratory Rate Blood Pressure 117/80 Blood Pressure [Le ft Arm] Blood Pressure [Ri ght Upper Arm] Pulse Oximetry 94 95 94 Oxygen Delivery Me thod 02/11/23 20:15 02/11/23 20:30 02/11/23 20:45 Temperature Pulse Rate 91 90 91 Pulse Rate [Pulse Oximeter] Respiratory Rate Blood Pressure Blood Pressure [Le ft Arm] Blood Pressure [Ri ght Upper Arm] Pulse Oximetry 94 94 92 Oxygen Delivery Me thod 02/11/23 21:00 02/11/23 21:15 02/11/23 21:30 Temperature Pulse Rate 93 89 85 Pulse Rate [Pulse Oximeter] Respiratory Rate Blood Pressure Blood Pressure [Le ft Arm] Blood Pressure [Ri ght Upper Arm] Pulse Oximetry 93 94 91 Oxygen Delivery Me thod 02/11/23 21:45 02/11/23 22:00 02/11/23 22:02 Temperature Pulse Rate 81 81 80 Pulse Rate [Pulse Oximeter] Respiratory Rate Blood Pressure 116/94 H Blood Pressure [Le ft Arm] Blood Pressure [Ri ght Upper Arm] Pulse Oximetry 95 93 97 Oxygen Delivery Me thod 02/11/23 22:15 02/11/23 22:30 02/11/23 22:45 Temperature 99.5 F Pulse Rate 84 82 Pulse Rate [Pulse Oximeter] Respiratory Rate Blood Pressure Blood Pressure [Le ft Arm] Blood Pressure [Ri ght Upper Arm] Pulse Oximetry 93 96 Oxygen Delivery Me thod 02/11/23 22:45 02/12/23 00:00 02/12/23 00:00 Temperature 98.7 F Pulse Rate 79 Pulse Rate [Pulse Oximeter] 75 Respiratory Rate 20 Blood Pressure Blood Pressure [Le ft Arm] 114/71 Blood Pressure [Ri ght Upper Arm] Pulse Oximetry 95 98 98 Oxygen Delivery Me thod Room Air Room Air 02/12/23 03:50 02/12/23 07:49 Temperature 99.5 F 98.4 F Pulse Rate Pulse Rate [Pulse Oximeter] 76 75 Respiratory Rate 18 16 Blood Pressure Blood Pressure [Le ft Arm] 115/62 118/98 H Blood Pressure [Ri ght Upper Arm] Pulse Oximetry 95 96 Oxygen Delivery Me thod Room Air Room Air Documenting provider has reviewed patient's vital signs: yes Labs Labs: Laboratory Results - last 24 hr 02/11/23 02/11/23 02/11/23 18:10 18:13 18:45 WBC 21.84 H RBC 4.44 Hgb 14.0 Hct 42.5 MCV 96 MCH 32 MCHC 33 RDW Coeff of Dionisio 13.2 Plt Count 187 Neut % (Auto) 71.8 Lymph % (Auto) 7.2 L [place] % (Auto) 20.4 H Eos % (Auto) 0.0 Baso % (Auto) 0.2 Neut # (Auto) 15.70 H Lymph # (Auto) 1.60 [place] # (Auto) 4.50 H Eos # (Auto) 0.00 Baso # (Auto) 0.00 Abs Immat Gran (auto) 0.10 Imm/Tot Granulo (auto) 0.4 Diff Slide Review Acceptable Review Sodium 145 Potassium 4.0 Chloride 112 Carbon Dioxide 20 Anion Gap 13 BUN 29 Creatinine 2.5 H Estimated Creat Clear 22.40 Estimated GFR 26 Glucose 162 H Lactate 1.6 Calcium 9.6 Total Bilirubin 1.2 Direct Bilirubin AST 29 ALT 21 Alkaline Phosphatase 115 C-Reactive Protein > 9.0 H Total Protein 9.3 H Albumin 4.3 Urine Color Urine Appearance Urine pH Ur Specific [place] Urine Protein Urine Glucose (UA) Urine Ketones Urine Blood Urine Nitrite Urine Bilirubin Urine Urobilinogen Ur Leukocyte Esterase Urine RBC Urine WBC Urine WBC Clumps Ur Squamous Epith Cells Urine Bacteria SARS-CoV-2 (PCR) Negative SARS-CoV-2 Influenza Type A (PCR) Negative PCR FLU A Influenza Type B (PCR) Negative PCR FLU B RSV (PCR) Negative PCR RSV Lab Acknowledgement Test Added 02/11/23 02/12/23 19:33 05:50 WBC 18.81 H RBC 3.82 L Hgb 11.9 L Hct 36.8 L MCV 96 MCH 31 MCHC 32 RDW Coeff of Dionisio 13.2 Plt Count 165 Neut % (Auto) 72.8 H Lymph % (Auto) 6.7 L [place] % (Auto) 20.0 H Eos % (Auto) 0.0 Baso % (Auto) 0.1 Neut # (Auto) 13.70 H Lymph # (Auto) 1.30 [place] # (Auto) 3.80 H Eos # (Auto) 0.00 Baso # (Auto) 0.00 Abs Immat Gran (auto) 0.10 Imm/Tot Granulo (auto) 0.4 Diff Slide Review Acceptable Review Sodium 148 Potassium 4.0 Chloride 117 H Carbon Dioxide 21 Anion Gap 10 BUN 29 Creatinine 2.1 H Estimated Creat Clear 26.67 Estimated GFR 31 Glucose 143 H Lactate 1.2 Calcium 8.8 Total Bilirubin 0.9 Direct Bilirubin 0.2 AST 28 ALT 16 Alkaline Phosphatase 84 C-Reactive Protein 22.3 H Total Protein 7.9 Albumin 3.5 Urine Color Yellow Urine Appearance Slightly Cloudy A Urine pH 8.0 Ur Specific [place] 1.015 Urine Protein 2+ A Urine Glucose (UA) Negative Urine Ketones Negative Urine Blood 2+ A Urine Nitrite Negative Urine Bilirubin Negative Urine Urobilinogen 0.2 Ur Leukocyte Esterase 3+ A Urine RBC 5-10 A Urine WBC >100 A Urine WBC Clumps Few A Ur Squamous Epith Cells None Urine Bacteria Moderate A SARS-CoV-2 (PCR) Influenza Type A (PCR) Influenza Type B (PCR) RSV (PCR) Lab Acknowledgement
[2023-02-13] MEDS: SODIUM CHLORIDE 0.9 % (FLUSH) 10 ML SYRINGE 5 ML IVF (00:39)
--- NOTE | 2023-02-13 05:45 | PC.NURSE ---
End of Shift: Patient opens eyes to voice. Speech mumbled/garbled. Turn and reposition every 2 hours. Incontinent of bowel and bladder. Frequent oral cares. Patient able to rest comfortably between cares.
[2023-02-13 07:45] VITALS: RESP 16
--- NOTE | 2023-02-13 09:37 | PC.SOCIAL ---
Discharge Planning: Met with family in room. Discharging today with non-emergency ambulance at 10:30. Called [facility] at [phone]. Faxed H and P, current med list to . They are waiting for discharge packet. They state that they do not require anything else because this is a re-admission to hospice. Social work to follow up a needed.
--- NOTE | 2023-02-13 09:46 | P.DS_ITS ---
DS: Providers Provider Time Seen by Provider: 09:15 Date Seen: 02/13/23 Date of admission: 02/11/23 23:32 Primary care physician: Daria Dia DNP, RN Admitting Clinician: Denilson Ruby MD Consults: 02/11/23 23:34 Consult to Physical Therapy [CONS] Routine Comment: Reason(s) for PT Consult:: Evaluate and Treat Any Restrictions?:: No Restrictions Consult to Hydraulic Jack Mechanic [CONS] Routine Comment: Reason for Consult:: Discharge Planning Needs 02/11/23 23:35 Consult to Occupational Therapy [CONS] Routine Comment: Reason(s) for OT Consult:: Evaluate and Treat Any Restrictions?:: No Restrictions Attending Physician on discharge: Soraida Gurrola MD Date of Discharge: 02/13/23 DS: Diagnosis Discharge Diagnosis (1) Hypertension: Status: Chronic (2) Coronary artery disease: Status: Chronic (3) Palliative care encounter: Status: Acute Problem details: Patient has been in hospice with a diagnosis of dementia since November 2022. She verbalized concerns tonight about her fears that he was suffering and also that he was dying. She was fearful that the staff at assisted living and in hospice could not relieve his suffering. She feels his quality of life is poor and he does not want life-prolonging treatment but she does not want to let go. On 1st day of admission repeat discussion regarding end of life cares, goals of care, prognosis has led to conclude that she would like comfort cares only and no life prolonging treatment. Will initiate fentanyl patch and discontinue life prolonging interventions. Discharge back to [facility] for hospice. Very poor prognosis (4) Altered mental status: Status: Acute Problem details: Acute worsening of his mental status in the last few days. Previously walking independently and feeding himself. Recently not eating and not walking and less responsive overall. Likely due to infection and sepsis (5) Urinary tract infection: Status: Acute Problem details: Goals of care no longer include treatment of UTI (6) Sepsis: Status: Acute Problem details: Fever, leukocytosis, acute kidney injury, altered mental status likely due to urinary infection. Goals of care no longer include treatment of sepsis (7) Hyperproteinemia: Status: Acute Problem details: Unknown cause. Uncertain whether investigation would benefit the patient; goals of care are for comfort only. (8) Dementia: Status: Chronic Problem details: Severe. Hospice diagnosis. Terminally ill (9) Uqpcv-up-rfrbuir kidney injury: Status: Acute Problem details: Comfort cares only (10) Abdominal tenderness: Status: Acute Problem details: Patient had tenderness with palpation over the right side of his abdomen. Due to altered mental status the significance of this was difficult to assess. His decided that he was not a candidate for surgical intervention. For now will forego further testing due to goals of care are for comfort only DS: Summary Hospital Course Hospital Course: This is a 77-year-old male with severe dementia who had been in hospice care and had decline in mental status in function over the last few days to the point where he was no longer eating or drinking. He then developed a fever. His was concerned about this and wanted him to have antibiotics and fluids. They were unable to get him to take antibiotics because he was not eating or drinking and so his had him brought to the emergency room for further evaluation and ultimately admitted to the hospital for IV fluids and IV antibiotics. Upon reviewing goals of care on several occasions it became clear that his does not want him to suffer and she is also not wanting to let him go. She had been concerned that staff at memory care along with hospice were unable to provide him comfort. With further converse a yip she would like him on comfort cares only and no life prolonging treatment. A fentanyl patch was in initiated yesterday and he has become much more comfortable overnight and is no longer agitated. He is now taking liquids and soft foods. He is discharged back to bed and acting memory care on hospice. Time Spent with Patient Time attestation: Total time spent providing and/or coordinating discharge services: Exam Narrative: Exam Narrative: General: No acute distress. Appears comfortable. Occasionally awakens, but falls back asleep quickly. Made no attempt to speak, did not follow commands. and sister are at bedside. Cardiovascular: Regular rate and rhythm. Respiratory: Clear to auscultation bilaterally. No wheezes or crackles. Abdomen: Bowel sounds present. Soft, nondistended, nontender. Extremities: No pedal edema. DS: Data Data Completed and Pending Completed studies during hospitalization: Ordering Physician: Violeta Mckeon M.D. Date of Service: 02/11/23 Procedure(s): XR chest 1V portable Accession Number(s): [id number] cc: Daria Dia DNP, RN; Violeta Mckeon M.D.~ For Patients: As a result of the Century Cures Act, medical imaging exams and procedure reports are released immediately into your electronic medical record. You may view this report before your referring provider. If you have questions, please contact your health care provider. INDICATION: Cough and fever. COMPARISON: Two-view chest December 08, 2020. TECHNIQUE: Single portable AP chest. FINDINGS: Normal size cardiac silhouette. Clear lung alfaro. No acute pneumonic infiltrates or CHF. IMPRESSION: Negative portable AP chest. Dictated by Per Moe MD @ 02/11/2023 6:44:47 PM (Electronically Signed) Labs on day of discharge: Preliminary micro results at discharge 02/11/23 Unknown Urine Culture - Preliminary Urine Catheterized Gram negative fabiana 02/11/23 18:45 Blood Culture - Preliminary Blood - Venipuncture NO GROWTH AFTER 24 HOURS 02/11/23 18:40 Blood Culture - Preliminary Blood - Venipuncture NO GROWTH AFTER 24 HOURS Discharge Plan Discharge Disposition: [facility] Date of Admission: 02/11/23 23:32 Attending Provider on Discharge: Soraida Gurrola Primary Care Provider: Daria Dia Discharge Medications: New lorazepam 0.5 mg tablet 0.5 mg PO DAILY PRNQty: 10 0RF morphine concentrate 100 mg/5 mL (20 mg/mL) solution 5 mg PO Q2H PRN (Reason: pain or dyspnea) Qty: 15 0RF fentanyl 12 mcg/hr Patch 72 Hour 1 patch transdermal Q72H Qty: 0 0RF Continued sennosides-docusate sodium [Stimulant Laxative Plus] 8.6-50 mg tablet 1 tab PO DAILY PRN (Reason: constipation) Discontinued aspirin 81 mg tablet,delayed release (DR/EC) 81 mg PO QDAY propranolol 60 mg capsule,extended release 24 hr 60 mg PO QDAY fluorouracil 5 % cream 1 applic topical BID Qty: 40 0RF Discharge Orders: Discharge Order (Routine); Ordered 02/13/23 Ordered By: Soraida Gurrola Activity Level: Activity as Tolerated Discharge Diet: Regular Diet Detail: Nutritional supplement TIDWM Dysphagia Food: Level 6- Soft & Bite size Dysphagia Liquid: Level 0-Thin Follow Up Appointments: [facility] [Outside] (Patient being discharged to [facility]) Daria Dia DNP, RN [Primary Care Provider] - Forms: [employer] Info Instructions Admit to: Assisted Living Discharge Potential: Poor Length of Stay: <30 days Code Status: DNR/DNI Oxygen: No Urinary Catheter: No Hospice Evaluate and Admit: [facility] Orders are good >30 days: No Signature: Soraida Gurrola MD
--- NOTE | 2023-02-13 12:03 | PC.NURSE ---
Post discharge-- Received call from [facility] regarding Morphine order. Upon clarification from both [facility] and [facility] from [facility], medication orders that had been sent to [facility] were cancelled per their request.
--- NOTE | 2023-02-13 16:42 | PC.NURSE ---
PATIENT T&R IN BED. INCONTINENT OF URINE AND ATTENDS CHANGED PRIOR TO DC. ATTEMPTED TO GIVE NURSE TO NURSE REPORT TO BAILEE RIOS AT [facility] AT 1030. NO ANSWER AND MESSAGE LEFT. PATIENT TRANSFERRED VIA NONEMERGENT EMS AND PRESENT AT TIME OF DC. [facility] DC'D.
== END 2023-02-13 10:32 | disposition hospice, inpatient (51) | DRG 872 ==
LOC: ED 22:36 → MEDSURG 02-12 09:17
PROVIDERS: Admitting Provider Family Medicine; Emergency Provider Family Medicine; PCP Nurse Practitioner Gerontology; Visit Provider Family Medicine
DX: A41.9 Sepsis, unspecified organism (principal); N39.0 Urinary tract infection, site not specified; B96.5 Pseudomonas (aeruginosa) (mallei) (pseudomallei) as the cause of diseases classified elsewhere; R10.9 Unspecified abdominal pain; I12.9 Hypertensive chronic kidney disease with stage 1 through stage 4 chronic kidney disease, or unspecified chronic kidney disease; G30.9 Alzheimer's disease, unspecified; F02.C0 Dementia in other diseases classified elsewhere, severe, without behavioral disturbance, psychotic disturbance, mood disturbance, and anxiety; I25.10 Atherosclerotic heart disease of native coronary artery without angina pectoris; N18.9 Chronic kidney disease, unspecified; E88.09 Other disorders of plasma-protein metabolism, not elsewhere classified; Z51.5 Encounter for palliative care; E78.5 Hyperlipidemia, unspecified; Z85.828 Personal history of other malignant neoplasm of skin
CPT/HCPCS: 36415; 51702; 71045; 80048; 80053; 80076; 81001; 83605; 85025; 86140; 87040; 87086; 87186; 87631; 94761; 99284; 99285; A9270; J0696; J7120

== ENCOUNTER 2023-02-13 10:24 | Outpatient (CLI) | payer MEDICARE, BC, SELFPAY | END 2023-02-13 10:25 | disposition home or self-care (01) | LOC: AMB 02-16 09:34 | PROVIDERS: PCP Nurse Practitioner Gerontology; Visit Provider Family Medicine | DX: F03.90 Unspecified dementia, unspecified severity, without behavioral disturbance, psychotic disturbance, mood disturbance, and anxiety (principal); R41.82 Altered mental status, unspecified | CPT/HCPCS: A0425; A0428 ==